=== PATIENT | female | born 1960 | race American Indian/Alaskan Native ===

== ENCOUNTER 2020-03-20 10:23 | Emergency (ER) | payer MEDICAID ==
--- NOTE | 2020-03-20 10:57 | Emergency Department Report ---
ED CPR HPI - General Chief Complaint: Cardiac Arrest/CPR Stated Complaint: CARDIAC ARREST Time Seen by Provider: 03/20/20 10:40 Source: EMS Mode of arrival: Stretcher Limitations: Other - History of Present Illness Initial Comments: 60-year-old female with history of hypertension presents to the ED in cardiac arrest. EMS states patient's daughter called EMS because patient was feeling generally weak all morning. Upon arrival patient was initially responsive but then became unresponsive. Patient had a witnessed arrest. EMS reports initial rhythm was PEA. Patient was intubated by EMS. Patient was down for approximately 20 minutes prior to ED arrival. At that point patient received epi x3 with no ROSC. EMS states daughter denies patient had been experiencing any fever, cough, shortness of breath, nor has she had any contact with any known COVID positive persons. MD Complaint: stopped breathing Place: home Downtime Before ACLS Arrival (mins): 0 Initial Findings in the Field: lethargic ROSC in the Field: No Associated Symptoms: dizziness/weakness Treatments Prior to Arrival: intubation, chest compressions, epinephrine mgs # (3) ED Review of Systems ROS: Stated complaint: CARDIAC ARREST Other details as noted in HPI Comment: Unobtainable due to pts medical conditions ED Physical Exam - General Limitations: Other General appearance: obtunded - Head Head exam: Present: atraumatic, normocephalic - ENT ENT exam: Present: other (ET tube in place) - Neck Neck exam: Present: normal inspection - Respiratory Respiratory exam: Present: other (no spontaneous breaths) - Cardiovascular Cardiovascular Exam: Present: other (no palpable pulse) - GI/Abdominal GI/Abdominal exam: Present: soft. Absent: distended - Extremities Exam Extremities exam: Present: pedal edema - Neurological Exam Neurological exam: Present: other (GCS=3) - Skin Skin exam: Present: warm, dry, intact, normal color ED Medical Decision Making - Medical Decision Making 60-year-old female arrived in cardiac arrest. Patient had a rhythm of PEA. Code was continued according to ACLS guidelines. Please see jeanette's note for details. ROSC was not achieved. Time of called at 10:31 AM. Pt's daughter was notified. - Differential Diagnosis ACS, CVA, PE Critical care attestation.: If time is entered above; I have spent that time in minutes in the direct care of this critically ill patient, excluding procedure time. ED Disposition Clinical Impression: Cardiac arrest Disposition: DC-20 Is pt being admited?: No Condition: Stable Referrals: PRIMARY CARE, [Primary Care Provider] - 3-5 Days Time of Disposition: 11:03
== END 2020-03-20 11:00 ==
LOC: ED 10:23
DX: I46.9 Cardiac arrest, cause unspecified (principal)
CPT/HCPCS: 31500; 92950